=== PATIENT | female | born 1995 | race Hispanic/Latino ===

== ENCOUNTER 2025-11-07 05:47 | Inpatient (IN) | payer MEDICAID, OTHER, SELFPAY ==
[2025-11-07 06:12] VITALS: BMI 32.4
[2025-11-07] MEDS ORDERED: Carboprost 250 MCG/ML AMP IM PRN (06:25)
[2025-11-07] MEDS ORDERED: Acetaminophen 500 MG TAB PO PRN (06:25)
[2025-11-07] MEDS ORDERED: Lidocaine 1% (PF) 30 ML VIAL SC PRN (06:25)
[2025-11-07] MEDS ORDERED: Tranexamic Acid 1,000 MG/10 ML VIAL IVP PRN (06:25)
[2025-11-07] MEDS ORDERED: Diphenoxylate HCl/Atropine Tablet PO PRN ×2 (06:25)
[2025-11-07] MEDS ORDERED: Methylergonovine 0.2 MG/ML VIAL IM PRN ×2 (06:25→09:35)
[2025-11-07] MEDS ORDERED: hydrALAZINE 20 MG/ML VIAL SLOW IVP PRN ×2 (06:25→09:35)
[2025-11-07] MEDS ORDERED: Ondansetron PF 4 MG/2 ML Vial IVP PRN ×2 (06:25→09:35)
[2025-11-07] MEDS ORDERED: Oxytocin 30 units/NS 500 ML 500 ML IV SCH ×4 (06:30→09:35)
[2025-11-07 06:48] LABS: Hematocrit 41.7 % (34.9-44.5); Hemoglobin 14.0 g/dL (12.0-15.5); Mean Corpuscular Hemoglobin 27.4 pg (27.0-33.0); Mean Corpuscular Volume 81.6 fL (81.6-98.3); Platelet Count 287 10x3/uL (150-450); Red Blood Cell (RBC) Count 5.11 10x6/uL (3.90-5.03); White Blood Cell (WBC) Count 10.42 10x3/uL (3.5-10.5)
[2025-11-07] MEDS: Ibuprofen 800 MG TAB PO PRN (07:18)
[2025-11-07 07:32] LABS: Syphilis Antibody Index 0.06 S/CO (<1.00 Non-Reactive)
[2025-11-07 07:34] LABS: Hep B Surf Ag - L&D Non-Reactive S/CO (NonReactive)
[2025-11-07] MEDS ORDERED: Preparation H Ointment 28 GM TUBE PR PRN (09:35)
[2025-11-07] MEDS ORDERED: Methylergonovine 0.2 MG TAB PO PRN (09:35)
[2025-11-07] MEDS ORDERED: diphenhydrAMINE 25 MG CAP PO PRN (09:35)
[2025-11-07] MEDS ORDERED: Milk Of Magnesia 30 ML UDCUP PO PRN (09:35)
[2025-11-07] MEDS ORDERED: Benzocaine-Menthol 82.5 ML CAN TOP PRN (09:35)
[2025-11-07] MEDS ORDERED: Lanolin Ointment 7 GM TUBE TOP PRN (09:35)
[2025-11-07] MEDS ORDERED: Bisacodyl 10 MG SUPP PR PRN (09:35)
[2025-11-07] MEDS: fentaNYL/Ropivacaine Epidural 100 ML ONE (10:34)
[2025-11-07] MEDS: Ferrous Sulfate 325 MG TAB PO SCH ×2 (10:35→16:20)
[2025-11-07] MEDS: Hepatitis B Vaccine 10 MCG/0.5 ML SYR IM ONE (11:09)
[2025-11-07] MEDS: Measles/Mumps/Rubella 10 MCG/0.5 ML VIAL SC ONE (11:09)
[2025-11-07] MEDS: Ibuprofen 800 MG TAB PO SCH (13:55)
[2025-11-08] MEDS: Acetaminophen 325 MG TAB PO PRN (07:35)
[2025-11-09 07:39] VITALS: BP 106/69; TEMP 97.8
[2025-11-09] MEDS: Measles/Mumps/Rubella 10 MCG/0.5 ML VIAL SC ONE (09:21)
[2025-11-09] MEDS ORDERED: Hepatitis B Vaccine 10 MCG/0.5 ML SYR ONE (10:07)
== END 2025-11-09 10:45 | disposition home or self-care (01) | DRG 807 ==
LOC: CSHLD/OP 05:47 → CSHLD 06:38 → CSHPP 09:29
PROVIDERS: ADMIT Family Medicine; ATTEND Family Medicine
PROC: 10E0XZZ Delivery of Products of Conception, External Approach (ICD-10-PCS; principal; 2025-11-07)
PROC: 4A1HXCZ Monitoring of Products of Conception, Cardiac Rate, External Approach (ICD-10-PCS; 2025-11-07)
DX: O62.3 Precipitate labor (principal); Z37.0 Single live birth; Z3A.37 37 weeks gestation of pregnancy; Z79.899 Other long term (current) drug therapy
CPT/HCPCS: 85027; 86780; 86850; 86900; 86901; 87340; 90707; 90744; 99285